=== PATIENT | male | born 1960 | race Caucasian/White ===

== ENCOUNTER 2023-01-19 10:00 | Emergency (ER) | payer OTHER, SELFPAY ==
[2023-01-19 10:18] VITALS: BP 152/104; PULSE 77; RESP 16; TEMP 36.8; O2SAT 99
--- NOTE | 2023-01-19 10:45 | ED.SKABFB ---
HPI - Skin/Abscess/Foreign Bdy General Chief complaint: Skin/Abscess/Foreign Body Stated complaint: Insect Bite Time Seen by Provider: 01/19/23 10:45 Source: patient Mode of arrival: ambulatory Limitations: no limitations History of Present Illness HPI narrative: 62-year-old male presented for complaint of red itchy bumps scattered over arms for about 2 weeks. Most sites are scabbed. Also reports one scabbed area to right lower leg. States she notices them after working outside in the [place]ed areas. Applying Benadryl cream without much improvement. Scratching the sites frequently. Denies lip, tongue, or throat swelling, shortness of breath or wheezing. Denies changes to soap, detergent, lotion, or any other exposures. No one else in the house or any contacts with similar symptoms. Related Data Home Medications Medication Instructions Recorded Confirmed carvedilol 6.25 mg tablet 6.25 mg PO BID 01/19/23 01/19/23 enalapril maleate 5 mg tablet 5 mg PO DAILY 01/19/23 01/19/23 rosuvastatin 40 mg tablet 40 mg PO DAILY 01/19/23 01/19/23 Allergies Allergy/AdvReac Type Severity Reaction Status Date / Time No Known Allergies Allergy Verified 01/19/23 10:22 Review of Systems Review of Systems: CONSTITUTIONAL: Denies body aches, fever, chills, or sweats. EYES: Denies visual changes, redness, or discharge. ENT: Denies rhinorrhea, congestion CARDIOVASCULAR: Denies chest pain, palpitations, or edema. RESPIRATORY: Denies cough or dyspnea. GASTROINTESTINAL: Denies abdominal pain, nausea, vomiting, or diarrhea. SKIN: per HPI MUSCULOSKELETAL: Denies back pain, joint pain, or myalgia. NEUROLOGIC: Denies headache, numbness, tingling, or weakness. [facility] Past Medical History Medical History (Updated 01/19/23 @ 10:57 by Luzmaria Watt APRN) No pertinent past medical history Family History Family History Other Cerebrovascular accident Family history of cardiovascular disease Family history of malignant neoplasm Hypertension Social History Social History Smoking status: Never smoker Alcohol intake: current Comments At time of signature, I have reviewed and agree with nursing past medical, surgical, social and family history unless otherwise noted. Please see nursing chart for further information. There is no relevant family history pertinent to the presenting complaint Exam Narrative: GENERAL: Well-appearing HEAD: Normocephalic, atraumatic. EYES: conjunctivae clear, and EOMI. ENT: Mucous membranes moist. Oropharynx without edema, erythema or lesions. NECK: Supple. No lymphadenopathy CHEST: Clear to auscultation. HEART: Regular rate and rhythm. SKIN: Warm, dry. Round erythematous raised areas approximately 0.5 cm in diameter, most are scabbed, consistent with insect bite reactions scattered over BUEs. No induration, fluctuance, or active drainage to the sites. NEURO: Alert and oriented x3. Course Course Emergency Course: Patient is aware of diagnosis, understands and agrees to treatment plan. Anticipatory guidance given. Patient agrees to follow-up as directed and is aware of reasons to seek care at the emergency department. Portions of this record may have been created with voice recognition software Level of Care: Express Care Visit Vital Signs Vital signs: Vital Signs Temperature 98.2 F 01/19/23 10:18 Pulse Rate 77 01/19/23 10:18 Respiratory Rate 16 01/19/23 10:18 Blood Pressure 152/104 H 01/19/23 10:18 Pulse Oximetry 99 01/19/23 10:18 Oxygen Delivery Room Air 01/19/23 10:18 Temperature 98.2 F 01/19/23 10:18 Pulse Rate 77 01/19/23 10:18 Respiratory Rate 16 01/19/23 10:18 Blood Pressure 152/104 H 01/19/23 10:18 Pulse Oximetry 99 01/19/23 10:18 Oxygen Delivery Room Air 01/19/23 10:18 Reviewed MDM - Skin/Abscess/Foreign
[2023-01-19 11:00] VITALS: BP 142/78
== END 2023-01-19 11:00 | disposition home or self-care (01) ==
PROVIDERS: Emergency Provider Nurse Practitioner Family
DX: S40.862A Insect bite (nonvenomous) of left upper arm, initial encounter (principal); S40.861A Insect bite (nonvenomous) of right upper arm, initial encounter; W57.XXXA Bitten or stung by nonvenomous insect and other nonvenomous arthropods, initial encounter
CPT/HCPCS: 99213; G0463